=== PATIENT | male | born 1955 | race Caucasian/White ===

== ENCOUNTER 2024-05-27 07:00 | Day surgery (SDC) | payer MEDICARE, BC ==
[2024-05-23 16:29] LABS: BASOPHILS % (AUTO) 0.3 % (0-1); EOSINOPHILS # (AUTO) 0.2 X10'3 (0-0.9); EOSINOPHILS % (AUTO) 2.7 % (0-6); LYMPHOCYTES # (AUTO) 1.5 X10'3 (1.1-4.8); LYMPHOCYTES % (AUTO) 24.7 % (21-51); MEAN CORPUSCULAR VOLUME 94.4 FL (78-98); MEAN PLATELET VOLUME 7.2 FL (7.4-10.4); MONOCYTES # (AUTO) 0.5 X10'3 (0-0.9); MONOCYTES % (AUTO) 7.5 % (2-12); NEUTROPHILS % (AUTO) 64.8 % (42-75); PRE OP HEMATOCRIT 44.3 % (42.0-52.0); PRE OP HEMOGLOBIN 15.5 g/dL (14.0-17.9); PRE OP PLATELET COUNT 208 X10'3 (140-440); PRE OP WHITE BLOOD COUNT 6.2 10'3 (4.8-10.8); RED BLOOD COUNT 4.69 X10'6 (4.70-6.10); RED CELL DISTRIBUTION WIDTH 13.5 % (11.5-14.5)
[2024-05-23 16:47] LABS: ALBUMIN 3.5 G/DL (3.4-5.0); ALBUMIN/GLOBULIN RATIO 0.9 (1.1-1.5); ALKALINE PHOSPHATASE 102 IU/L (46-116); BLOOD UREA NITROGEN 9 MG/DL (7-18); BUN/CREATININE RATIO 9.5 (10.0-20.0); CALCIUM 8.4 MG/DL (8.5-10.1); CHLORIDE 106 MMOL/L (99-107); CREATININE 0.95 MG/DL (0.60-1.10); PRE OP ALT 35 U/L (30-65); PRE OP ANION GAP 8 (8-16); PRE OP AST 17 U/L (10-37); PRE OP BILIRUB, TOTAL 0.6 MG/DL (0.0-1.0); PRE OP GLUCOSE 121 MG/DL (70-104); PRE OP POTASSIUM 3.4 MMOL/L (3.4-5.1); PRE OP SODIUM 144 MMOL/L (135-145); TOTAL CARBON DIOXIDE 30.2 MMOL/L (24-32); TOTAL PROTEIN 7.2 G/DL (6.4-8.2); eGFR 79 ML/MIN
[2024-05-27] VITALS (8 sets, daily range): BP systolic 111–148; BP diastolic 71–85; PULSE 45–56; RESP 12–15; O2SAT 93–98
[~2024-05-27] VITALS: Ht 200.7 cm; Wt 115.7 kg
[2024-05-27] MEDS: ceFAZolin 2gm in dextrose, iso 50 ML IV ONE (05:30)
[~2024-05-27 07:00] MED LIST: AMLO10TA14 PO; ASPI-1071 PO; ZOLP10TA PO
[2024-05-27] MEDS: ringers solution, lacted 1,000 ML IV SCH (08:01)
[2024-05-27] MEDS: famotidine 20mg tablet PO ONE (08:01)
[2024-05-27] MEDS ORDERED: morphine 4 MG/ML inj SYRINge IV PRN (08:10)
[2024-05-27] MEDS ORDERED: morphine 2 MG/ML inj. syringe IV PRN (08:10)
[2024-05-27] MEDS ORDERED: meperidine/PF 25mg/ml syringe IV PRN ×3 (08:10)
[2024-05-27] MEDS ORDERED: proCHLORperazine 10 MG/2 ml inj IV PRN (08:10)
[2024-05-27] MEDS ORDERED: ringers solution, lacted 1,000 ML IV SCH (08:10)
[2024-05-27] MEDS ORDERED: ondansetron/PF 4mg/2ml inj IV PRN (08:10)
[2024-05-27] MEDS ORDERED: LIDOcaine 2% (20mg/ml) 5ml vial ONE (09:14)
[2024-05-27] MEDS ORDERED: BUPIVAcaine/PF 2.5mg/ml (0.25%) 10ml vial ONE (09:14)
[2024-05-27] MEDS ORDERED: midazolam 1 mg/ML 2ml injection ONE (09:27)
[2024-05-27] MEDS ORDERED: fentaNYL/PF 50MCG/1 ML 2ML syringe ONE (09:27)
[2024-05-27] MEDS ORDERED: propofol inj 20 ML IV ONE (09:52)
== END 2024-05-27 11:14 | disposition home or self-care (01) ==
LOC: PAS 07:00
PROVIDERS: ATTEND Orthopaedic Surgery Hand Surgery
DX: M67.432 Ganglion, left wrist (principal); Z79.899 Other long term (current) drug therapy; M17.12 Unilateral primary osteoarthritis, left knee; Z98.890 Other specified postprocedural states; Z96.652 Presence of left artificial knee joint
CPT/HCPCS: 25111; 36415; 80053; 82948; 85025; 93005; A4215; A4618; A6449; A7000; J0690; J2003; J2250; J2704; J3010; J3490; J7030; J7120; Z7506; Z7512; Z7610